=== PATIENT | female | born 1985 | race Caucasian/White ===

== ENCOUNTER 2017-02-24 09:33 | Emergency (ER) | payer OTHER ==
[2017-02-24 09:58] LABS: BASOPHIL 0.1 % (0-2); EOSINOPHIL 0.3 % (0-5); HCT 44.9 % (37.0-47.0); HGB 15.3 g/dl (12.5-16.0); LYMPHOCYTE 20.1 % (15-48); MCH 30.5 pg (25.0-31.0); MCHC 34.1 g/dL (32.0-36.0); MCV 89.6 fL (78.0-100.0); MONOCYTE 10.6 % (0-12); MPV 10.1 fL (6.0-9.5); NEUTROPHIL 68.9 % (41-80); PLT 295 K/uL (150-400); RBC 5.01 M/uL (4.20-5.40); RDW 13.2 % (11.5-14.0); WBC 8.6 K/uL (4.0-10.5)
[2017-02-24 10:18] LABS: ALBUMIN 4.1 g/dL (3.5-5.0); BILIRUBIN - TOTAL 0.3 mg/dL (0.1-1.0); CREATININE 0.6 mg/dL (0.5-1.0); GLOBULIN (CALCULATION) 3.2 g/dL (2.2-4.2); POTASSIUM 3.7 mmol/L (3.5-5.1); TOTAL PROTEIN 7.3 g/dL (6.4-8.3)
[2017-02-24 11:09] LABS: BILIRUBIN 1+ mg/dL (NEGATIVE); BLOOD 3+ Ery/uL (NEGATIVE); CLARITY CLOUDY (CLEAR); COLOR YELLOW (YELLOW); GLUCOSE (U) NORMAL (NORMAL); KETONE (U) TRACE mg/dL (NEGATIVE); LEUKOCYTES NEGATIVE Leu/uL (NEGATIVE); NITRITE NEGATIVE (NEGATIVE); PROTEIN TRACE (LOW) mg/dL (NEGATIVE); UROBILINOGEN 0.2 mg/dL (0.2-1.0)
[2017-02-24 11:14] LABS: BACTERIA 1+; SQUAMOUS EPITHELIAL CELLS >50; URINARY RBC RARE
== END 2017-02-24 12:56 | disposition home or self-care (01) ==
LOC: FER 09:33
PROVIDERS: Emergency Medicine
DX: K52.9 Noninfective gastroenteritis and colitis, unspecified (principal); F17.210 Nicotine dependence, cigarettes, uncomplicated; Z98.890 Other specified postprocedural states; Z98.51 Tubal ligation status
CPT/HCPCS: 36415; 80053; 81001; 82150; 83690; 85025

== ENCOUNTER → 2021-03-26 | Day surgery (SDC) | payer OTHER ==
[~2021-03-26] VITALS: Ht 157.5 cm; Wt 68.6 kg
[~2021-03-26] MED LIST: ACETAMINOPHEN500 M1 PO; COLACE100 MG PO; CYMBALTA 30MG C30 MG PO; DICLOFENAC SODI75 MG PO; DRISDOL50000 UNIT PO; MOTRIN600 MG PO; OXY-IR 5MG5 MG PO; PHENERGAN25 M1 PO; SEROQUEL 100MG100 MG PO; SEROQUEL 50MG T50 MG PO; VENTOLIN HFA IN18 GM INH; VITAMIN D3 PO; ZOFRAN4 MG PO; ZOFRAN8 MG PO
== END | disposition home or self-care (01) ==
LOC: FAS 07:07
DX: L72.0 Epidermal cyst (principal); F41.9 Anxiety disorder, unspecified; K21.9 Gastro-esophageal reflux disease without esophagitis; E78.00 Pure hypercholesterolemia, unspecified; F32.9 Major depressive disorder, single episode, unspecified; F43.10 Post-traumatic stress disorder, unspecified; M19.90 Unspecified osteoarthritis, unspecified site; F17.210 Nicotine dependence, cigarettes, uncomplicated; Z20.822 Contact with and (suspected) exposure to COVID-19
CPT/HCPCS: J0690; J1100; J1644; J2250; J2405; J2704; J2710; J3010; J7120; U0002